=== PATIENT | female | born 1990 | race African-American/Black ===

== ENCOUNTER 2020-02-29 00:14 | Emergency (ER) | payer MEDICAID ==
[~2020-02-29] VITALS: Ht 152.4 cm; Wt 77.0 kg
[2020-02-29 00:17] VITALS: BP 126/80
[2020-02-29] MEDS ORDERED: KETOROLAC 60MG/2ML VIAL IM STA (00:39)
[2020-02-29 01:09] LABS: BASOPHILS % 0.9 % (0.0-2.0); EOSINOPHILS % 1.7 % (0.0-5.0); HEMATOCRIT. 38.5 % (36.0-48.0); HEMOGLOBIN. 12.8 g/dL (12.0-16.0); LYMPHOCYTES % 37.1 % (20.0-50.0); MEAN CORPUSCULAR HEMOGLOBIN 28.6 pg (28.0-32.0); MEAN PLATELET VOLUME 7.9 fl (7.4-10.4); MONOCYTES % 9.1 % (2.0-8.0); NEUTROPHILS % 51.2 % (40.0-76.0); PLATELET 300 x1000/uL (130-400); RED BLOOD CELL COUNT 4.48 mill/uL (4.2-5.4); RED CELL DISTRIBUTION WIDTH 13.1 % (11.6-14.6)
[2020-02-29 01:22] LABS: CLARITY URINE CLEAR (CLEAR); COLOR URINE ORANGE (YELLOW); KETONES URINE TRACE (NEGATIVE); LEUKOCYTE ESTERASE URINE TRACE (NEGATIVE); NITRITE URINE NEGATIVE (NEGATIVE); OCCULT BLOOD URINE 3+ (NEGATIVE); PROTEIN URINE 1+ (NEGATIVE); SPECIFIC GRAVITY URINE 1.026 (1.005-1.030)
[2020-02-29 02:03] LABS: PROTHROMBIN TIME 10.8 sec (9.6-11.0)
[2020-02-29] MEDS ORDERED: CEPHALEXIN 250MG CAPSULE PO NR (02:45)
[2020-02-29 05:24] LABS: CHLORIDE 109 mEq/L (98-107)
[2020-02-29 05:33] LABS: ETHANOL BLOOD < 10 mg/dL
[2020-02-29 06:08] LABS: *AMPHETAMINES SCREEN URINE NEGATIVE (NEGATIVE); *BARBITURATES SCREEN URINE NEGATIVE (NEGATIVE); *BENZODIAZEPINES SCREEN URINE NEGATIVE (NEGATIVE); *COCAINE SCREEN URINE NEGATIVE (NEGATIVE); METHADONE URINE SCREEN NEGATIVE (NEGATIVE)
[2020-02-29 06:09] LABS: CANNABINOID URINE SCREEN NEGATIVE (NEGATIVE); PHENCYCLIDINE URINE SCREEN NEGATIVE (NEGATIVE)
[2020-02-29 06:23] LABS: OPIATES URINE SCREEN PRESUMTIVE POSITIVE (NEGATIVE)
== END 2020-02-29 02:54 | disposition home or self-care (01) ==
LOC: ER 00:14
DX: R10.13 Epigastric pain (principal); N39.0 Urinary tract infection, site not specified; Z90.49 Acquired absence of other specified parts of digestive tract
CPT/HCPCS: 36415; 76700; 80053; 80305; 80320; 81003; 81025; 83690; 85025; 85610; 96372; 99284; J1885; G0480